=== PATIENT | female | born 1990 | race Caucasian/White ===

== ENCOUNTER 2024-08-07 14:26 | Emergency (ER) | payer BC, SELFPAY ==
[2024-08-07 14:36] VITALS: BP 127/84
--- NOTE | 2024-08-07 15:32 | ED.GENMED ---
History of Present Illness
General
Chief Complaint: Chest Pain
Source: patient
Time Seen by Provider: 08/07/24 15:14
History of Present Illness
History of Present Illness:
34yoF with a history of GERD and anxiety presenting with her for evaluation of chest pain. Patient reports intermittent chest discomfort throughout the day today. Pain is mainly left sided but is right sided at times. The pain is describes
as dull. Pain seems to occur when she is doing something like walking around or talking on the phone. She has no chest pain currently. She also reports shortness of breath but she states this is chronic for her. She had R leg pain a few weeks ago
for which she was seen by her PCP. She is worried that she may have a blood clot. She denies any leg swelling or syncope. No recent travel or OCP use. She follows with [facility] and she had an echocardiogram last year which was reportedly
normal.
Phy Exam
General Physical Exam
General Presentation: well appearing and no apparent distress
General age: appears stated age
General Skin: warm and dry
General Habitus: normal
General Mental: alert
ENT Exam
ENT Exam: normocephalic
Cardiovascular Exam
Cardiovascular Exam: regular rate/rhythm, no murmur and normal peripheral pulses (2+ DP pulses bilaterally )
Pulmonary Exam
Pulmonary Exam: lungs clear, no respiratory distress, no crackles and no wheezing
[place] Coma Scale
Eye Opening: Spontaneous
Verbal Response: Oriented
Motor Response: Obeys Commands
GCS Total Score: 15
Skin Exam
Skin Exam: normal color and warm/dry
Psychiatric Exam
Psychiatric Exam: normal mood/affect
Scores
Heart Score for Chest Pain Patients
STEMI patient?: No
History: Slightly or Non-Suspicious
ECG: Nonspecific Repolarization
Age: </= 45 years
Risk Factors: No Risk Factors
Troponin: </= Normal Limit
Heart Score for Chest Pain Patients: 1
Heart Score Risk: 2.5% MACE over next 6 weeks
Course
Orders/Labs/Results
Orders:
Orders
08/07/24 14:27
EKG [Electrocardiogram (*1)] Urgent
Reason for Study: Chest Pain
EKG- Treatment ONCE
08/07/24 15:32
Cardiac Monitoring- Treatment ONCE
Test Result ONCE
08/07/24 15:42
Complete Blood Count/With Diff Urgent
Comprehensive Metabolic Panel Urgent
D-Dimer Urgent
HCG, Serum Qualitative Screen Urgent
Troponin I Urgent
08/07/24 16:33
CT Chest Pe Study Urgent
Comment:
Reason For Exam: CP, elevated D-dimer
08/07/24 16:41
Venous Doppler Lwr Ext Rt [US Periph Venous LOWER Ext RT] Urgent
Comment:
Reason For Exam: R leg pain, elevated D-dimer
Abnormal Lab Results
08/07/24
15:42
Absolute Lymphs (auto) 1.0 L 10^3/uL
(1.2-3.4)
Neutrophils % 77.0 H %
(42.2-75.2)
Lymphocytes % 17.1 L %
(20.5-51.1)
D-Dimer 0.70 H ug/mlFEU
(0.00-0.50)
Total Protein 8.3 H g/dl
(6.3-8.2)
Albumin 5.2 H g/dl
(3.5-5.0)
08/07/24 15:42
08/07/24 15:42
Vital Signs
Initial and Last Documented VS:
Initial Vital Signs
Temp Pulse Resp BP Pulse Ox
98.9 F 91 16 127/84 100
08/07/24 14:36 08/07/24 14:36 08/07/24 14:36 08/07/24 14:36 08/07/24 14:36
Last Documented Vital Signs
Temp Pulse Resp BP Pulse Ox
98.1 F 73 20 108/67 98
08/07/24 20:26 08/07/24 20:26 08/07/24 20:26 08/07/24 20:26 08/07/24 20:26
MDM/Problems Addressed
Differential Diagnosis Includes:
34yoF here with intermittent chest pains throughout the day today. She is afebrile and hemodynamically stable. She is well appearing in no distress. Exam is reassuring. Differential diagnosis includes but is not limited to: PE, pneumonia,
pneumothorax, ACS, anxiety, nonspecific chest pain
Initial ED plan: Check cardiac labs, D-dimer, EKG, and CXR.
*EKG
Interpreted by ED Provider?: Yes
EKG Intrepretation Date: 08/07/24
Heart Rate: 79
Rate: normal
Rhythm: sinus
[place]: normal axis
Interval: normal interval
QRS Pattern: normal QRS
Ischemia: non-specific ST changes (Overall unchanged from EKG in July 2023)
*Critical Care Note
Total Time (30-74mins, 75-104mins- exclusive of procedures): Not Applicable
Update Note
Update Note:
EKG shows NSR with nonspecific ST changes which appears similar to prior EKG last year. Troponin WNL. D-dimer elevated and CTA chest subsequently ordered. CT is negative for pulmonary embolism. Patient reports R leg pain 2 weeks ago. Venous duplex
ordered which is negative for DVT. No indication for hospitalization. Advised f/u with PCP and her vice president of marketing. ED return precautions discussed. She was discharged in stable condition.
ED Attending Note
-
Portions of this chart may have been created with voice recognition software.� Occasional wrong word or��sound alike� substitutions may have occurred due to the inherent limitations of voice recognition software.
Discharge Plan
Departure
Patient Disposition: Home (Routine Discharge)
Date of Disposition: 08/07/24
Time of Disposition: 19:27
Patient with high blood pressure during this ER visit?: No
Discharge Problem:
Chest pain
Instructions: Chest Pain NON-[facility] [employer] Technical Lead Follow Up
Prescriptions:
No Action
prenat.vits,rosangela,[id number] Tablet
1 tab PO DAILY AT 0700
acetaminophen 325 mg Tablet
650 mg PO Q4HPRN PRN (Reason: mild pain) Qty: 0 0RF
ibuprofen 600 mg Tablet
600 mg PO Q6HPRN PRN (Reason: moderate pain/cramps) Qty: 0 0RF
Referrals:
Derek Álvarez, DO [Family Provider] -
Activity Restrictions/Additional Instructions:
Please follow-up with your family doctor and vice president of marketing. Return to the ER with any new or worsening symptoms.
Interventions
Interventions:
*Risk Screen - Suicide Last Done: 08/07/24 14:36
*General Assessment Last Done: 08/07/24 14:36
*Neglect/Abuse Screening Last Done: 08/07/24 14:36
ED- Fall Risk Assessment Last Done: 08/07/24 20:15
*ED COVID-19 Vaccine History Last Done: 08/07/24 15:38
*Nursing Disposition Last Done: 08/07/24 20:26
ED- Cardiac Assessment Last Done: 08/07/24 20:15
Discharge Date and Time
Discharge Date/Time: 08/07/24 20:28
Print Language: LEBANESE
[2024-08-07 15:41] VITALS: BP 123/69
[2024-08-07 15:43] VITALS: BMI 20.6
[2024-08-07 16:00] VITALS: BP 122/79
[2024-08-07 16:07] LABS: % Basophils 0.9 % (0-2); % Eosinophils 0.7 % (0-6); % Immature Granulocytes 0.2 % (0-0.5); % Lymphocytes 17.1 % (20.5-51.1); % Monocytes 4.1 % (1.7-9.3); Absolute Basophils 0.1 10^3/uL (0-0.2); Absolute Monocytes 0.2 10^3/uL (0.1-0.6); Absolute Neutrophils 4.3 10^3/uL (1.4-6.5); Hematocrit 38.5 % (37.0-47.0); Hemoglobin 13.4 g/dL (12.0-16.0); Mean Corp Hgb Conc. 34.8 g/dL (33.0-37.0); Mean Corpuscular Hgb 29.6 pg (27.0-31.0); Mean Platelet Volume 9.9 fL (7.4-10.4); Nucleated Red Blood Cells % 0 %; Platelet Count 256 10^3/uL (130-400); Red Blood Cell Count 4.53 10^6/uL (4.20-5.40); White Blood Cell Count 5.6 10^3/uL (4.8-10.8)
[2024-08-07 16:20] LABS: HCG, Serum Qualitative Screen Negative
[2024-08-07 16:25] LABS: ALT (SGPT) 12 U/L (0-35); AST (SGOT) 21 U/L (14-36); Albumin 5.2 g/dl (3.5-5.0); Alkaline Phosphatase 48 U/L (38-126); Blood Urea Nitrogen 7 mg/dl (7-17); Calcium 9.9 mg/dl (8.4-10.2); Carbon Dioxide 25 mmol/L (22-30); Chloride 103 mmol/L (98-107); Estimated Creatinine Clearance 115 ml/min; Glucose 93 mg/dl (70-99); Potassium 4.4 mmol/L (3.5-5.1); Sodium 142 mmol/L (135-145); Total Bilirubin 0.7 mg/dl (0.2-1.3); Total Protein 8.3 g/dl (6.3-8.2); eGFR > 60.00
[2024-08-07 16:33] LABS: Troponin I < 0.012 ng/ml
[2024-08-07 17:09] VITALS: BP 121/68
[2024-08-07 20:15] VITALS: BP 108/67
[2024-08-07 20:26] VITALS: BP 108/67
== END 2024-08-07 20:28 | disposition home or self-care (01) ==
LOC: EMR 14:26
PROVIDERS: Physician Assistant; EMERGENCY PHYSICIAN Student in an Organized Health Care Education/Training Program; FAMILY PHYSICIAN Family Medicine
DX: R07.89 Other chest pain (principal); M79.604 Pain in right leg; K21.9 Gastro-esophageal reflux disease without esophagitis; F41.9 Anxiety disorder, unspecified
CPT/HCPCS: 99285; 71275; 80053; 84484; 84703; 85025; 85379; 93005; 93971; Q9967